=== PATIENT | male | born 1960 | race Hispanic/Latino ===

== ENCOUNTER 2021-07-12 23:34 | Emergency (ER) | payer OTHER ==
[~2021-07-12] VITALS: Ht 175.3 cm; Wt 79.4 kg
[~2021-07-12 23:34] MED LIST: CRESTOR10 MG PO; HYDROCHLOROTHIA25 MG PO; METOPROLOL SUCC25 MG PO; PLAVIX75 MG PO
[2021-07-13] MEDS ORDERED: Morphine 4mg Syringe 4 MG/ML INJ IM STA (01:06)
[2021-07-13 02:43] VITALS: BP 139/82
== END 2021-07-13 02:35 | disposition home or self-care (01) ==
LOC: ER 23:37
DX: M54.2 Cervicalgia (principal); M25.512 Pain in left shoulder; M25.511 Pain in right shoulder; M25.551 Pain in right hip; W07.XXXA Fall from chair, initial encounter; Y92.89 Other specified places as the place of occurrence of the external cause; Z86.73 Personal history of transient ischemic attack (TIA), and cerebral infarction without residual deficits; E78.00 Pure hypercholesterolemia, unspecified; R91.8 Other nonspecific abnormal finding of lung field
CPT/HCPCS: 72125; 73030 ×2; 73502; 99284; J2270